=== PATIENT | male | born 1995 ===

== ENCOUNTER 2020-02-23 06:05 | Emergency (ER) | payer OTHER ==
[2020-02-23] MEDS ORDERED: EPINEPHrine 10 ML SYRINGE (0.1 MG/ML) ONE (06:06)
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
== END 2020-02-23 11:40 | disposition expired ==
LOC: EC 06:05 → EDBD 06:05 → EC 11:40
DX: I46.9 Cardiac arrest, cause unspecified (principal); S00.93XA Contusion of unspecified part of head, initial encounter; V49.9XXA Car occupant (driver) (passenger) injured in unspecified traffic accident, initial encounter; Y92.410 Unspecified street and highway as the place of occurrence of the external cause
CPT/HCPCS: 99285; 31500; J0171; 94002